=== PATIENT | female | born 1985 | race Caucasian/White ===

== ENCOUNTER 2017-12-22 09:26 | Day surgery (SDC) | payer OTHER ==
[~2017-12-22 09:26] MED LIST: AZIT250 PO; CYCL10 PO; DOXY100 PO; GABA300 PO; HYDACE5 PO; IBUP800 PO; LABE200 PO; LISI5 PO; METF500C PO; METPRE4DP PO; NAPR500 PO; Norco 5-325 Ta1 EACH PO; OXYACE5T PO; OXYC15ER PO; PROM25 PO; Prednisone20 MG PO; RANI150 PO; Verotin-Gr Cap1 EACH PO
[2017-12-22 11:26] LABS: Performing Lab VERACYTE; Test Name FNA
[2017-12-27 07:28] LABS: Result SEE PATHOTH RESULTS
== END 2017-12-22 22:39 | disposition home or self-care (01) ==
LOC: US 09:26
PROVIDERS: Registered Nurse
PROC: 0GBH3ZX Excision of Right Thyroid Gland Lobe, Percutaneous Approach, Diagnostic (ICD-10-PCS; principal; 2017-12-22)
DX: E04.1 Nontoxic single thyroid nodule (principal)
CPT/HCPCS: 10022; 76942

== ENCOUNTER → 2018-10-27 | Outpatient (CLI) | payer OTHER ==
[2018-10-28 11:46] LABS: Candida species (DNA Probe) Negative (NEGATIVE); G. vaginalis (DNA Probe) Negative (NEGATIVE); T. vaginalis (DNA Probe) Negative (NEGATIVE)
[2018-10-31 15:06] LABS: HPV 16 Negative (Negative); HPV 18 Negative (Negative); HPV OTHER HR TYPES Negative (Negative)
== END | disposition home or self-care (01) ==
LOC: LAB SHORT 18:28 → LAB 18:28
PROVIDERS: Registered Nurse
DX: Z12.4 Encounter for screening for malignant neoplasm of cervix (principal); N89.8 Other specified noninflammatory disorders of vagina
CPT/HCPCS: 87480; 87510; 87624; 87660; G0123

== ENCOUNTER 2020-07-30 12:46 | Emergency (ER) | payer OTHER ==
[~2020-07-30] VITALS: Ht 172.7 cm; Wt 142.9 kg
[~2020-07-30 12:46] MED LIST changes: +BUSP10 PO; +METF500 PO; +Percocet 5-3251 EACH PO
[2020-07-30] MEDS ORDERED: Prednisone20 MG PO (13:14)
== END 2020-07-30 13:25 | disposition home or self-care (01) ==
LOC: ER 12:46
DX: L23.7 Allergic contact dermatitis due to plants, except food (principal); Z79.899 Other long term (current) drug therapy
CPT/HCPCS: 96372; 99282; J3301

== ENCOUNTER → 2022-06-17 | Outpatient (CLI) | payer OTHER ==
[2022-06-18 15:11] LABS: HPV 16 Negative (Negative); HPV 18 Negative (Negative); HPV OTHER HR TYPES Negative (Negative)
== END | disposition home or self-care (01) ==
LOC: RAD SHORT 12:15
PROVIDERS: Obstetrics & Gynecology
DX: Z09 Encounter for follow-up examination after completed treatment for conditions other than malignant neoplasm (principal); Z87.42 Personal history of other diseases of the female genital tract
CPT/HCPCS: 87624; G0145

== ENCOUNTER → 2023-07-26 | Outpatient (CLI) | payer OTHER ==
[2023-07-29 09:11] LABS: HPV HIGH RISK BY TMA Not Detected; HPV SOURCE Vaginal
== END ==
LOC: LAB SHORT 09:41 → LAB 09:41
PROVIDERS: Obstetrics & Gynecology
DX: Z01.419 Encounter for gynecological examination (general) (routine) without abnormal findings (principal)
CPT/HCPCS: 87624; G0123